=== PATIENT | female | born 1970 | race African-American/Black ===

== ENCOUNTER 2022-10-30 23:30 | Emergency (ER) | payer OTHER ==
[~2022-10-30] VITALS: Ht 167.6 cm; Wt 75.0 kg
[2022-10-31 01:35] LABS: BASOPHILS % 0.7 % (0.0-2.0); EOSINOPHILS % 3.7 % (0.0-5.0); HEMATOCRIT. 36.3 % (36.0-48.0); HEMOGLOBIN. 12.2 g/dL (12.0-16.0); LYMPHOCYTES % 19.9 % (20.0-50.0); MEAN CORPUSCULAR HEMOGLOBIN 27.7 pg (28.0-32.0); MEAN PLATELET VOLUME 7.9 fl (7.4-10.4); NEUTROPHILS % 68.7 % (40.0-76.0); PLATELET 302 x1000/uL (130-400); RED BLOOD CELL COUNT 4.42 mill/uL (4.2-5.4); RED CELL DISTRIBUTION WIDTH 14.2 % (11.6-14.6)
[2022-10-31 01:53] LABS: CHLORIDE 109 mEq/L (98-107)
[2022-10-31 02:00] LABS: ETHANOL BLOOD < 10 mg/dL (-10)
[2022-10-31] MEDS ORDERED: SODIUM CHLORIDE 0.9% 1,000 ML IV NR (03:30)
[2022-10-31] MEDS ORDERED: IOHEXOL-350 100 ML BOTTLE ONE (04:19)
[2022-10-31 05:23] LABS: *AMPHETAMINES SCREEN URINE NEGATIVE (NEGATIVE); *BARBITURATES SCREEN URINE NEGATIVE (NEGATIVE); *BENZODIAZEPINES SCREEN URINE NEGATIVE (NEGATIVE); *COCAINE SCREEN URINE NEGATIVE (NEGATIVE); CANNABINOID URINE SCREEN PRESUMTIVE POSITIVE (NEGATIVE); METHADONE URINE SCREEN NEGATIVE (NEGATIVE); OPIATES URINE SCREEN NEGATIVE (NEGATIVE); PHENCYCLIDINE URINE SCREEN NEGATIVE (NEGATIVE)
[2022-10-31 06:00] VITALS: BP 128/75
== END 2022-10-31 06:24 | disposition home or self-care (01) ==
LOC: ER 23:30
DX: M25.462 Effusion, left knee (principal); R00.0 Tachycardia, unspecified; I10 Essential (primary) hypertension; Z79.899 Other long term (current) drug therapy
CPT/HCPCS: 36415; 71045; 71275; 80053; 80305; 80320; 83880; 84484; 85025; 85379; 93970; 99285; Q9967; G0480

== ENCOUNTER 2022-11-09 02:01 | Emergency (ER) | payer OTHER ==
[~2022-11-09] VITALS: Ht 167.6 cm; Wt 72.8 kg
[2022-11-09 02:10] VITALS: BP 110/82
[2022-11-09 02:49] LABS: BASOPHILS % 0.8 % (0.0-2.0); EOSINOPHILS % 4.8 % (0.0-5.0); HEMOGLOBIN. 14.1 g/dL (12.0-16.0); LYMPHOCYTES % 29.5 % (20.0-50.0); MEAN CORPUSCULAR HEMOGLOBIN 27.7 pg (28.0-32.0); MEAN CORPUSCULAR VOLUME 80.4 fL (81.0-99.0); MEAN PLATELET VOLUME 7.6 fl (7.4-10.4); MONOCYTES % 7.7 % (2.0-8.0); NEUTROPHILS % 57.2 % (40.0-76.0); PLATELET 350 x1000/uL (130-400); RED CELL DISTRIBUTION WIDTH 14.4 % (11.6-14.6)
[2022-11-09 02:58] LABS: CHLORIDE 105 mEq/L (98-107)
[2022-11-09 03:00] LABS: PARTIAL THROMBOPLASTIN TIME 29.3 sec (23.4-31.0); PROTHROMBIN TIME 10.6 sec (9.6-11.0)
== END 2022-11-09 10:42 | disposition left against medical advice (07) ==
LOC: ER 02:01
DX: Z53.21 Procedure and treatment not carried out due to patient leaving prior to being seen by health care provider (principal); I49.9 Cardiac arrhythmia, unspecified
CPT/HCPCS: 36415; 71045; 80053; 83880; 84484; 85025; 93005; 99281

== ENCOUNTER 2022-11-17 03:40 | Emergency (ER) | payer OTHER ==
[~2022-11-17] VITALS: Ht 167.6 cm; Wt 70.0 kg
[2022-11-17 03:46] VITALS: O2SAT 100
[2022-11-17 04:35] LABS: BASOPHILS % 0.4 % (0.0-2.0); EOSINOPHILS % 2.8 % (0.0-5.0); HEMATOCRIT. 45.5 % (36.0-48.0); HEMOGLOBIN. 15.2 g/dL (12.0-16.0); LYMPHOCYTES % 40.7 % (20.0-50.0); MEAN CORPUSCULAR HEMOGLOBIN 27.2 pg (28.0-32.0); MEAN CORPUSCULAR VOLUME 81.3 fL (81.0-99.0); MEAN PLATELET VOLUME 8.4 fl (7.4-10.4); MONOCYTES % 7.3 % (2.0-8.0); NEUTROPHILS % 48.8 % (40.0-76.0); PLATELET 343 x1000/uL (130-400); RED CELL DISTRIBUTION WIDTH 14.8 % (11.6-14.6)
[2022-11-17 04:42] LABS: PROTHROMBIN TIME 10.9 sec (9.6-11.0)
[2022-11-17 05:51] LABS: CHLORIDE 104 mEq/L (98-107)
[2022-11-17 06:00] LABS: PHOSPHORUS 1.7 mg/dL (2.5-4.9)
[2022-11-17] MEDS ORDERED: POTASSIUM CHLORIDE 20MEQ/PACKET PO NR (07:45)
[2022-11-17] MEDS ORDERED: LISINOPRIL 10MG TABLET PO ONE (08:00)
[2022-11-17] MEDS ORDERED: HYDROCHLOROTHIAZIDE 12.5MG CAPSULE PO ONE (08:00)
[2022-11-17] MEDS ORDERED: LORAZEPAM 1MG TABLET PO ONE (13:15)
[2022-11-17 14:56] VITALS: BP 126/86; PULSE 103; RESP 19; TEMP 98.3
== END 2022-11-17 15:08 | disposition short-term general hospital (02) ==
LOC: ER 03:55
DX: R07.89 Other chest pain (principal); I10 Essential (primary) hypertension; Z20.822 Contact with and (suspected) exposure to COVID-19; Z00.00 Encounter for general adult medical examination without abnormal findings; Z98.890 Other specified postprocedural states; Z86.59 Personal history of other mental and behavioral disorders
CPT/HCPCS: 80053; 83880; 83735; 84100; 85025; 85610; 84484; 36415; 71045; 93005; 99285; 87426; C9803; Z7610